=== PATIENT | female | born 1995 | race African-American/Black ===

== ENCOUNTER 2020-12-18 10:20 | Emergency (ER) | payer MEDICAID, OTHER | END 2020-12-18 11:10 | disposition home or self-care (01) | LOC: CSHERS 10:20 | DX: R11.2 Nausea with vomiting, unspecified (principal); R19.7 Diarrhea, unspecified; J45.909 Unspecified asthma, uncomplicated | CPT/HCPCS: 99283 ==

== ENCOUNTER 2021-06-26 10:51 | Emergency (ER) | payer OTHER, SELFPAY ==
[2021-06-26] MEDS ORDERED: Acetaminophen 500 MG TAB ONE (11:36)
[2021-06-26] MEDS ORDERED: Cyclobenzaprine 10 MG TAB ONE (11:36)
== END 2021-06-26 16:00 | disposition home or self-care (01) ==
LOC: CSHERS 10:51
DX: R07.89 Other chest pain (principal); R00.1 Bradycardia, unspecified; J45.909 Unspecified asthma, uncomplicated
CPT/HCPCS: 71046; 93005